=== PATIENT | male | born 1970 | race Caucasian/White ===

== ENCOUNTER → 2016-09-17 | Outpatient (CLI) | payer SELFPAY ==
[2016-09-17 18:47] LABS: Basophils # (A) 0.2 k/uL (0-0.2); Basophils % (A) 1 %; CH 28.1; Eosinophils # (A) 0.7 k/uL (0-0.7); Eosinophils % (A) 5 %; HCT 46.1 % (39.0-53.0); HDW 2.24; HGB 14.4 gm/dL (13.0-17.5); Luc % (Auto) 2; Lymphocytes # (A) 3.2 k/uL (1.0-4.8); Lymphocytes % (A) 24 %; MCH 27.5 pg (25.0-35.0); MCHC 31.3 g/dL (31.0-37.0); Monocytes # (A) 0.9 k/uL (0-1.0); Monocytes % (A) 7 %; Neutrophils # (A) 8.1 k/uL (1.3-7.7); Neutrophils % (A) 61 %; RBC 5.24 m/uL (4.30-5.90); RDW 12.8 % (11.5-15.5); WBC 13.2 k/uL (3.8-10.6); WBC (Perox) 12.51
[2016-09-17 19:00] LABS: ALT 26 U/L (21-72); AST 21 U/L (17-59); Alkaline Phosphatase 90 U/L (38-126); Anion Gap 11 mmol/L; Blood Urea Nitrogen 12 mg/dL (9-20); Calcium 9.8 mg/dL (8.4-10.2); Carbon Dioxide 27 mmol/L (22-30); Chloride 103 mmol/L (98-107); Glucose 97 mg/dL (74-99); Non-African American GFR(MDRD) >60 (>60 ml/min/1.73 sqM); Potassium 4.5 mmol/L (3.5-5.1); Sodium 141 mmol/L (137-145); Total Bilirubin 0.5 mg/dL (0.2-1.3); Total Protein 7.2 g/dL (6.3-8.2)
== END ==
LOC: MMGSC 16:02
PROVIDERS: ATTEND Family Medicine
DX: R53.83 Other fatigue (principal)
CPT/HCPCS: 36415; 80053; 84403; 84443; 85025

== ENCOUNTER → 2018-06-16 | Day surgery (SDC) | payer SELFPAY ==
[2018-06-14 15:56] VITALS: BMI 27.3
[~2018-06-16] MED LIST: LACTATED RINGERS 1,000 ML IV SCH; LIDOCAINE 1% 20 ML VIAL (10MG/ML) FOR IV START INTRADERMA ONE; LIDOCAINE 1% INJ 10MG/ML (20 ML MDV) ONE; PROPOFOL 10 MG/ML 20 ML VIAL IV ONE
[2018-06-16 12:56] VITALS: TEMP 98
--- NOTE | 2018-06-16 13:55 | P.PCN ---
Date of Procedure: 06/16/18 Procedure(s) Performed: BRIEF HISTORY: Patient is a 47-year-old pleasant white male, scheduled for an elective colonoscopy as a part of surveillance of long-standing history of CROHN 'S colitis diagnosed in 1995. He was on Remicade infusions from 1999 the - 2009 after which he discontinued because of insurance reasons. Lately has been having intermittent flareup just been treated with prednisone tapering doses in the last flareup was 2 months ago. He just finished tapering the prednisone 2 weeks ago. Currently on no maintenance therapy. He scheduled for a surveillance colonoscopy. PROCEDURE PERFORMED: Colonoscopy with biopsies PREOPERATIVE DIAGNOSIS: Long-standing history of Crohn's colitis. IV sedation per Anesthesia. PROCEDURE: After informed consent was obtained, the patient, was brought into the endoscopy unit. IV sedation was administered by Anesthesia under continuous monitoring. Digital rectal examination was normal. Initially the Olympus CF- 160 flexible video colonoscope was then inserted in the rectum, gradually advanced into the cecum without any difficulty. Careful examination was performed as the scope was gradually being withdrawn. Ileocecal valve and the appendiceal orifice were visualized and appeared normal. Prep was excellent. Mucosa of the cecum, ascending colon, transverse colon, descending colon, sigmoid colon, and rectum had scattered areas of aphthous like ulcerations with normal appearing intervening mucosa and multiple random biopsies were done from the cecum to rectum at every 10 cm intervals. No polyps identified. Retroflexion was performed in the rectum and no lesions were seen. The patient tolerated the procedure well. IMPRESSION: Scattered aphthous-like ulcerations scattered throughout the entire colon with normal appearing intervening mucosa status post multiple biopsies to rule out dysplasia Mild narrowing of the terminal ileum RECOMMENDATIONS: Findings of this examination were discussed with the patient as well as his family. He was advised to follow with the biopsy results. If the biopsy does not show any evidence of dysplasia, he can have a repeat colonoscopy in 2 years.
[2018-06-16 13:59] VITALS: RESP 16
[2018-06-16 14:08] VITALS: BP 109/76; PULSE 84
== END ==
LOC: ORWHC2ENDO 12:17
PROVIDERS: ATTEND Internal Medicine Gastroenterology
DX: K50.10 Crohn's disease of large intestine without complications (principal); J45.909 Unspecified asthma, uncomplicated; K21.9 Gastro-esophageal reflux disease without esophagitis; Z79.1 Long term (current) use of non-steroidal anti-inflammatories (NSAID); Z88.1 Allergy status to other antibiotic agents; Z88.8 Allergy status to other drugs, medicaments and biological substances
CPT/HCPCS: 88305; 45380; J2001; J2704